=== PATIENT | female | born 1945 | race Hispanic/Latino ===

== ENCOUNTER 2017-06-22 18:25 | Emergency (ER) | payer OTHER ==
[~2017-06-22 18:25] MED LIST: NAPR-1023 PO
[2017-06-22 18:56] LABS: BASOPHILS % (AUTO) 0.9 % (0.0-5.0); EOSINOPHILS % (AUTO) 2.2 % (0.0-8.0); HEMATOCRIT 39.2 % (36-48); LYMPHOCYTES % (AUTO) 21.7 % (21.0-51.0); MEAN CORPUSCULAR HEMOGLOBIN 28.5 pg (27.0-33.0); MEAN CORPUSCULAR HGB CONC 33.3 g/dL (32.0-36.0); MEAN CORPUSCULAR VOLUME 85.6 fL (79-99); MONOCYTES % (AUTO) 7.7 % (3.0-13.0); NEUTROPHILS % (AUTO) 67.5 % (40.0-77.0); NUCLEATED RED BLOOD CELLS 0.1 % (0.0-0.19); PLATELET COUNT (AUTO) 272 K/uL (130-400); RED BLOOD CELL COUNT(AUTO) 4.58 MIL/uL (4.00-5.50); RED CELL DISTRIBUTION WIDTH 14.5 % (11.0-15.5); WHITE BLOOD COUNT (AUTO) 7.2 K/uL (4.8-10.8)
[2017-06-22 19:06] LABS: CREATININE 0.9 mg/dL (0.5-1.5); POTASSIUM 3.5 mmol/L (3.5-5.1)
[2017-06-22 19:10] LABS: ALBUMIN 3.6 g/dL (3.5-5.0); BILIRUBIN,TOTAL 0.2 mg/dL (0.2-1.0); TOTAL PROTEIN, SERUM 7.3 g/dL (6.0-8.3)
[2017-06-22] MEDS ORDERED: IOPAMIDOL-370 75 ML VIAL IV ONE (19:10)
[2017-06-22] MEDS ORDERED: IOPAMIDOL-370 100 ML VIAL IV ONE (20:01)
[2017-06-22] MEDS ORDERED: MORPHINE SULFATE 4 MG/1ML SYG ONE (21:01)
[2017-06-22] MEDS ORDERED: KETOROLAC TROMETHAMINE 15MG/ML ONE (21:07)
[2017-06-22 21:56] LABS: APPEARANCE,URINE Clear (CLEAR); BILIRUBIN,URINE Negative (NEGATIVE); COLOR,URINE Yellow (YELLOW); GLUCOSE, URINE (UA) Negative (NEGATIVE); KETONES,URINE Negative (NEGATIVE); LEUKOCYTE ESTERASE ,URINE Negative (NEGATIVE); NITRATE,URINE Positive (NEGATIVE); OCCULT BLOOD,URINE Small (NEGATIVE); PH,URINE 6.5 (5.0-8.0); PROTEIN,URINE Negative (NEGATIVE); UROBILINOGEN,URINE 0.2 mg/dL (0.2-1.0)
[2017-06-22 22:05] LABS: BACTERIA,URINE Moderate /HPF (None Seen); RBC,URINE 0-1 /HPF (0-1)
== END 2017-06-22 22:18 | disposition home or self-care (01) ==
LOC: EDH 18:25
DX: S00.81XA Abrasion of other part of head, initial encounter (principal); S30.811A Abrasion of abdominal wall, initial encounter; S20.412A Abrasion of left back wall of thorax, initial encounter; S10.81XA Abrasion of other specified part of neck, initial encounter; M19.90 Unspecified osteoarthritis, unspecified site; E78.5 Hyperlipidemia, unspecified; M81.0 Age-related osteoporosis without current pathological fracture; M25.562 Pain in left knee; M79.645 Pain in left finger(s); Y04.0XXA Assault by unarmed brawl or fight, initial encounter; Y93.89 Activity, other specified; Y92.89 Other specified places as the place of occurrence of the external cause; Y99.8 Other external cause status
CPT/HCPCS: 36415; 70450; 70486; 71260; 72125; 73130; 73562; 74177; 80053; 81001; 85025; 99285; J1885; J2270; Q9967

== ENCOUNTER 2018-01-14 20:23 | Observation (INO) | payer OTHER ==
[~2018-01-14] VITALS: Ht 162.6 cm; Wt 102.5 kg
[2018-01-14] MEDS ORDERED: METHYLPREDNISOLONE SOD SUCC 125MG/2ML VIAL ONE (20:25)
[2018-01-14] MEDS ORDERED: ACETAMINOPHEN 325 MG TAB ONE (20:30)
[2018-01-14] MEDS ORDERED: IPRATROPIUM/ALBUTEROL SULFATE 3 ML SOLUTION IH ONE (20:39)
[2018-01-14 20:49] LABS: BASOPHILS % (AUTO) 0.4 % (0.0-5.0); EOSINOPHILS % (AUTO) 1.6 % (0.0-8.0); LYMPHOCYTES % (AUTO) 13.7 % (21.0-51.0); MEAN CORPUSCULAR HEMOGLOBIN 27.7 pg (27.0-33.0); MEAN CORPUSCULAR HGB CONC 32.1 g/dL (32.0-36.0); MEAN CORPUSCULAR VOLUME 86.4 fL (79-99); MONOCYTES % (AUTO) 2.2 % (3.0-13.0); NEUTROPHILS % (AUTO) 82.1 % (40.0-77.0); PLATELET COUNT (AUTO) 107 K/uL (130-400); RED BLOOD CELL COUNT(AUTO) 4.28 MIL/uL (4.00-5.50); RED CELL DISTRIBUTION WIDTH 14.7 % (11.0-15.5); WHITE BLOOD COUNT (AUTO) 3.8 K/uL (4.8-10.8)
[2018-01-14 21:13] LABS: INR 1.03 (0.85-1.15); PARTIAL THROMBOPLASTIN TIME 29.9 SEC (26.3-35.5); PROTHROMBIN TIME 10.8 SEC (9.6-11.6)
[2018-01-14 21:14] LABS: ALBUMIN 2.7 g/dL (3.5-5.0); BILIRUBIN,TOTAL 0.9 mg/dL (0.2-1.0); CREATININE 0.8 mg/dL (0.5-1.5); TOTAL PROTEIN, SERUM 6.6 g/dL (6.0-8.3)
[2018-01-14] MEDS ORDERED: SODIUM CHLORIDE 0.9% 1000ML 1,000 ML IV ONE (21:56)
[2018-01-14] MEDS ORDERED: AZITHROMYCIN 500MG+NS 250ML 250 ML IV ONE (22:01)
[2018-01-14 22:57] LABS: APPEARANCE,URINE Clear (CLEAR); BILIRUBIN,URINE Negative (NEGATIVE); COLOR,URINE Yellow (YELLOW); GLUCOSE, URINE (UA) Negative (NEGATIVE); KETONES,URINE Negative (NEGATIVE); LEUKOCYTE ESTERASE ,URINE Small (NEGATIVE); NITRATE,URINE Positive (NEGATIVE); OCCULT BLOOD,URINE Moderate (NEGATIVE); PROTEIN,URINE POS 2+ (NEGATIVE)
[2018-01-14 23:09] LABS: BACTERIA,URINE Moderate /HPF (None Seen)
[2018-01-14] MEDS ORDERED: IPRATROPIUM/ALBUTEROL SULFATE 3 ML SOLUTION IH PRN (23:45)
[2018-01-14] MEDS ORDERED: AZITHROMYCIN 500 MG in SODIUM CHLORIDE 0.9% 250 ML IV SCH (23:45)
[2018-01-14] MEDS ORDERED: SODIUM CHLORIDE 0.9% 10 ML VIAL IVP PRN (23:45)
[2018-01-14] MEDS ORDERED: ACETAMINOPHEN 325 MG TAB PO PRN ×2 (23:45)
[2018-01-15] MEDS: CEFTRIAXONE SODIUM 1 GM IVP SCH
[2018-01-15] MEDS ORDERED: IPRATROPIUM/ALBUTEROL SULFATE 3 ML SOLUTION IH ONE (06:40)
[2018-01-15] MEDS: IPRATROPIUM/ALBUTEROL SULFATE 3 ML SOLUTION IH SCH ×4 (06:42→18:39)
[2018-01-15 08:00] VITALS: BP 143/77
[2018-01-15 11:00] VITALS: BP 121/52
[2018-01-15] MEDS: METHYLPREDNISOLONE SOD SUCC 40MG/ML 1ML IVP SCH ×2 (12:12)
[2018-01-15 16:00] VITALS: BP 141/63
[2018-01-15 19:30] VITALS: BP 113/54
[2018-01-15] MEDS ORDERED: LIDOCAINE HCL-MPF 1% 2ML VIAL IVP PRN (19:30)
[2018-01-15] MEDS ORDERED: POTASSIUM CHLORIDE 10% ELIXIR 20 MEQ/15 ML UDCUP PO PRN (19:30)
[2018-01-15] MEDS ORDERED: POTASSIUM CHLORIDE 20MEQ/100ML 100 ML IV PRN (19:30)
[2018-01-15] MEDS: AZITHROMYCIN 500MG+NS 250ML 250 ML IV SCH (21:49)
[2018-01-15] MEDS: POTASSIUM CHLORIDE 20 MEQ ERTAB PO PRN (23:41)
[2018-01-16] VITALS (7 sets, daily range): BP systolic 130–179; BP diastolic 61–76
[2018-01-16] MEDS: CEFTRIAXONE SODIUM 1 GM IVP SCH ×2 (01:09→23:48)
[2018-01-16] MEDS: METHYLPREDNISOLONE SOD SUCC 40MG/ML 1ML IVP SCH ×3 (01:09→23:48)
[2018-01-16] MEDS: POTASSIUM CHLORIDE 20 MEQ ERTAB PO PRN (03:23)
[2018-01-16 04:36] LABS: HEMATOCRIT 33.7 % (36-48); MEAN CORPUSCULAR HEMOGLOBIN 28.2 pg (27.0-33.0); MEAN CORPUSCULAR HGB CONC 32.7 g/dL (32.0-36.0); MEAN CORPUSCULAR VOLUME 86.4 fL (79-99); NUCLEATED RED BLOOD CELLS 0.1 % (0.0-0.19); PLATELET COUNT (AUTO) 141 K/uL (130-400); WHITE BLOOD COUNT (AUTO) 7.7 K/uL (4.8-10.8)
[2018-01-16 04:39] LABS: CREATININE 0.7 mg/dL (0.5-1.5); POTASSIUM 3.7 mmol/L (3.5-5.1)
[2018-01-16] MEDS: IPRATROPIUM/ALBUTEROL SULFATE 3 ML SOLUTION IH SCH ×4 (06:00→18:00)
[2018-01-16] MEDS: SODIUM CHLORIDE 0.9% 1000ML 1,000 ML IV SCH ×3 (06:33→22:05)
[2018-01-16] MEDS ORDERED: ALBU18HF7 IH (10:09)
[2018-01-16] MEDS ORDERED: SIMV40TA59 PO (10:09)
[2018-01-16] MEDS ORDERED: ASPI-555 PO (11:12)
[2018-01-16] MEDS ORDERED: NAPROXEN 500 MG TABLET PO PRN (11:15)
[2018-01-16] MEDS ORDERED: ALBUTEROL SULFATE 0.083% 2.5 MG/3 ML INH IH PRN (11:15)
[2018-01-16] MEDS ORDERED: SIMVASTATIN 20 MG TABLET PO SCH (21:00)
[2018-01-16] MEDS: AZITHROMYCIN 500MG+NS 250ML 250 ML IV SCH (22:06)
[2018-01-17 03:55] VITALS: BP 185/77
[2018-01-17 04:57] LABS: HEMATOCRIT 33.4 % (36-48); MEAN CORPUSCULAR HGB CONC 33.9 g/dL (32.0-36.0); MEAN CORPUSCULAR VOLUME 85.4 fL (79-99); PLATELET COUNT (AUTO) 190 K/uL (130-400); RED BLOOD CELL COUNT(AUTO) 3.91 MIL/uL (4.00-5.50); WHITE BLOOD COUNT (AUTO) 7.3 K/uL (4.8-10.8)
[2018-01-17 05:01] LABS: CREATININE 0.7 mg/dL (0.5-1.5); POTASSIUM 3.6 mmol/L (3.5-5.1)
[2018-01-17] MEDS: POTASSIUM CHLORIDE 20 MEQ ERTAB PO PRN (05:12)
[2018-01-17] MEDS: IPRATROPIUM/ALBUTEROL SULFATE 3 ML SOLUTION IH SCH ×2 (06:09→10:09)
[2018-01-17 08:22] VITALS: BP 187/77
[2018-01-17] MEDS ORDERED: LISINOPRIL 20 MG TABLET PO SCH (09:00)
[2018-01-17] MEDS ORDERED: ASPIRIN 81MG TAB.CHEW PO SCH (09:00)
== END 2018-01-17 11:12 | disposition home or self-care (01) ==
LOC: EDH 20:23 → EDHIP 22:48 → 4CH 01-15 07:46
PROVIDERS: ADMIT Internal Medicine; ATTEND Internal Medicine
DX: J44.0 Chronic obstructive pulmonary disease with (acute) lower respiratory infection (principal); J44.1 Chronic obstructive pulmonary disease with (acute) exacerbation; I10 Essential (primary) hypertension; R50.9 Fever, unspecified; E87.6 Hypokalemia; E78.5 Hyperlipidemia, unspecified; J18.1 Lobar pneumonia, unspecified organism; Z79.01 Long term (current) use of anticoagulants
CPT/HCPCS: 36415 ×3; 71045; 80048 ×2; 80053; 81001; 83605 ×2; 83880; 85025; 85027 ×2; 85610; 85730; 87040 ×2; 87088; 87804 ×2; 93005; 94640 ×9; 94660; 94664; 96365; 96366; 96375 ×2; 96376; 99291; A4218; G0378 ×60; J0456 ×4; J0696 ×2; J2920 ×3; J2930; J7030 ×2

== ENCOUNTER 2020-07-10 23:16 | Emergency (ER) | payer OTHER ==
[~2020-07-10 23:16] MED LIST changes: +ALBU18HF7 IH; +ASPI-556 PO; +SIMV40TA59 PO
[2020-07-11 01:40] LABS: APPEARANCE,URINE Cloudy (CLEAR); BILIRUBIN,URINE Negative (NEGATIVE); COLOR,URINE Yellow (YELLOW); GLUCOSE, URINE (UA) Negative (NEGATIVE); KETONES,URINE Negative (NEGATIVE); LEUKOCYTE ESTERASE ,URINE Small (NEGATIVE); NITRATE,URINE Positive (NEGATIVE); OCCULT BLOOD,URINE Trace (NEGATIVE); PROTEIN,URINE Negative (NEGATIVE); UROBILINOGEN,URINE 0.2 mg/dL (0.2-1.0)
[2020-07-11 01:52] LABS: BACTERIA,URINE Moderate /HPF (None Seen); RBC,URINE 0-1 /HPF (0-1); SQUAMOUS EPITHELIAL CELL,UR Few /HPF (0-2); WBC,URINE 0-1 /HPF (0-1)
[2020-07-11] MEDS ORDERED: HYDROCODONE/ACETAMINOPHEN 5/325 MG TAB ONE (02:27)
[2020-07-11 02:41] LABS: BASOPHILS % (AUTO) 0.7 % (0.0-5.0); EOSINOPHILS % (AUTO) 3.2 % (0.0-8.0); HEMATOCRIT 38.2 % (36-48); LYMPHOCYTES % (AUTO) 30.4 % (21.0-51.0); MEAN CORPUSCULAR HEMOGLOBIN 28.6 pg (27.0-33.0); MEAN CORPUSCULAR HGB CONC 32.5 g/dL (32.0-36.0); MONOCYTES % (AUTO) 9.1 % (3.0-13.0); PLATELET COUNT (AUTO) 273 K/uL (130-400); RED BLOOD CELL COUNT(AUTO) 4.34 MIL/uL (4.00-5.50); WHITE BLOOD COUNT (AUTO) 6.8 K/uL (4.8-10.8)
[2020-07-11 02:55] LABS: ALBUMIN 3.3 g/dL (3.5-5.0); BILIRUBIN,TOTAL 0.4 mg/dL (0.2-1.0); CREATININE 0.6 mg/dL (0.5-1.5); POTASSIUM 3.7 mmol/L (3.5-5.1); TOTAL PROTEIN, SERUM 6.8 g/dL (6.0-8.3)
[2020-07-11 03:00] LABS: B-TYPE NATRIURETIC PEPTIDE 42 pg/mL (0-100)
[2020-07-11] MEDS ORDERED: FUROSEMIDE 20 MG TABLET ONE (03:37)
[2020-07-11] MEDS ORDERED: CEPHALEXIN 500 MG CAPSULE ONE (03:37)
== END 2020-07-11 04:24 | disposition home or self-care (01) ==
LOC: EDH 23:16
DX: S43.421A Sprain of right rotator cuff capsule, initial encounter (principal); N39.0 Urinary tract infection, site not specified; M25.551 Pain in right hip; R29.6 Repeated falls; I10 Essential (primary) hypertension; M81.0 Age-related osteoporosis without current pathological fracture; E78.5 Hyperlipidemia, unspecified; M19.90 Unspecified osteoarthritis, unspecified site; W18.39XA Other fall on same level, initial encounter; Y93.01 Activity, walking, marching and hiking; Y92.89 Other specified places as the place of occurrence of the external cause; Y99.8 Other external cause status
CPT/HCPCS: 36415; 72170; 73030; 73562; 80053; 81001; 83880; 85025; 87077; 87088; 87186

== ENCOUNTER → 2020-08-02 | Outpatient (CLI) | payer OTHER | END | disposition home or self-care (01) | LOC: RAH 10:25 | PROVIDERS: ATTEND Internal Medicine | DX: I08.0 Rheumatic disorders of both mitral and aortic valves (principal); R55 Syncope and collapse; R60.0 Localized edema; E66.9 Obesity, unspecified; E78.5 Hyperlipidemia, unspecified | CPT/HCPCS: 93306; 93356 ==

== ENCOUNTER → 2020-08-08 | Outpatient (CLI) | payer OTHER | END | disposition home or self-care (01) | LOC: RAH 09:50 | PROVIDERS: ATTEND Internal Medicine | DX: I87.2 Venous insufficiency (chronic) (peripheral) (principal); I87.9 Disorder of vein, unspecified | CPT/HCPCS: 93970 ==

== ENCOUNTER → 2020-09-14 | Outpatient (CLI) | payer OTHER | END | disposition home or self-care (01) | LOC: RAH 10:40 | DX: M77.52 Other enthesopathy of left foot and ankle (principal); M77.51 Other enthesopathy of right foot and ankle; M79.89 Other specified soft tissue disorders | CPT/HCPCS: 73560 ==

== ENCOUNTER → 2022-04-10 | Outpatient (CLI) | payer OTHER ==
[2022-04-10 13:00] LABS: CREATININE 0.6 mg/dL (0.5-1.5); POTASSIUM 4.2 mmol/L (3.5-5.1)
== END | disposition home or self-care (01) ==
LOC: LAB 11:36
PROVIDERS: ATTEND Student in an Organized Health Care Education/Training Program
DX: I10 Essential (primary) hypertension (principal); R06.09 Other forms of dyspnea
CPT/HCPCS: 36415; 80048

== ENCOUNTER → 2022-04-12 | Outpatient (CLI) | payer OTHER ==
[~2022-04-12] MED LIST changes: +IOHEXOL 350 MG/ML 100ML INFUS..BTL IV ONE
== END | disposition home or self-care (01) ==
LOC: RAH 09:20
PROVIDERS: ATTEND Student in an Organized Health Care Education/Training Program
DX: K44.9 Diaphragmatic hernia without obstruction or gangrene (principal); R06.02 Shortness of breath; M47.815 Spondylosis without myelopathy or radiculopathy, thoracolumbar region
CPT/HCPCS: 75574; Q9967

== ENCOUNTER → 2022-04-16 | Outpatient (CLI) | payer OTHER ==
[~2022-04-16] MED LIST changes: -IOHEXOL 350 MG/ML 100ML INFUS..BTL IV ONE
== END | disposition home or self-care (01) ==
LOC: SHCH 10:03
PROVIDERS: ATTEND Student in an Organized Health Care Education/Training Program
DX: R06.02 Shortness of breath (principal)
CPT/HCPCS: 93306

== ENCOUNTER 2024-12-21 08:56 | Emergency (ER) | payer OTHER ==
[~2024-12-21] VITALS: Ht 152.4 cm; Wt 111.6 kg
[~2024-12-21 08:56] MED LIST changes: -NAPR-1023 PO; +NAPR-1194 PO
[2024-12-21 09:30] LABS: IMMATURE GRANULOCYTE ABSOLUTE 0.01 K/uL (0-1); NUCLEATED RED BLOOD CELLS 0.0 % (0.0-0.19); PLATELET COUNT (AUTO) 264 K/uL (130-400); RED BLOOD CELL COUNT(AUTO) 4.55 MIL/uL (4.00-5.50); RED CELL DISTRIBUTION WIDTH 13.9 % (11.0-15.5); WHITE BLOOD COUNT (AUTO) 4.5 K/uL (4.8-10.8)
[2024-12-21 09:48] LABS: ASPARTATE AMINOTRANSFERASE 15.0 U/L (10-37); CREATININE 0.5 mg/dL (0.5-1.0); GLOMERULAR FILTR. RATE CALC 95.0 mL/min (>90); GLUCOSE,RANDOM 97.0 mg/dL (70-105); SODIUM SERUM 139.0 mmol/L (136-145); TOTAL PROTEIN, SERUM 7.3 g/dL (6.0-8.3); UREA NITROGEN, BLOOD 18.0 mg/dL (7-18)
--- NOTE | 2024-12-21 10:33 | EKG ---
[facility] Test Date: 2024-12-21 Test Time: 09:03:21 Pat Name: REECE MURPHY Department: [facility] Room: Gender: F Final Application Reviewer: [id number] : [id number] Requested By: AMILCAR CHRISTIAN Order Number: [id number] Reading MD: Vicki Lizarraga Measurements Intervals [place] Rate: 57 P: -16 NH: 214 QRS: -8 QRSD: 109 T: 44 QT: 429 QTc: 417 Interpretive Statements Sinus rhythm Borderline prolonged NH interval Compared to ECG 01/14/2018 20:26:39 Sinus tachycardia no longer present ST (T wave) deviation no longer present Electronically Signed On 12-23-2024 12:39:04 MEDICAL ESTHETICIAN by Vicki Lizarraga Please click the below link to view image of tracing.
--- NOTE | 2024-12-21 10:34 | HMCIMG ---
EXAM: CR Chest, 1 View. CLINICAL HISTORY: cp COMPARISON: None provided. FINDINGS: LUNGS: There is no mass, infiltrate, or acute pulmonary abnormality. PLEURAL SPACES: No pleural effusion or pneumothorax. MEDIASTINUM: The cardiomediastinal silhouette is within normal limits. BONES: No aggressive appearing osseous lesion seen. MISCELLANEOUS: Suspected hiatal hernia. Elevated right hemidiaphragm. IMPRESSION: 1. No acute cardiopulmonary findings. 2. Suspected hiatal hernia. 3. Elevated right hemidiaphragm. /[place]
--- NOTE | 2024-12-21 11:10 | HMCIMG ---
EXAM: CT Head Without IV contrast. CLINICAL HISTORY: Dizziness. TECHNIQUE: Axial computed tomography images of the head/brain without intravenous contrast. COMPARISON: None provided. FINDINGS: BRAIN: No evidence of acute hemorrhage. No mass lesion. No CT evidence for acute territorial infarct. No midline shift or extra-axial collections. Age-related cerebral atrophy. VENTRICLES: No hydrocephalus. ORBITS: The orbits are unremarkable. SINUSES AND MASTOIDS: The paranasal sinuses and mastoid air cells are clear. BONES: No fracture. Note made of hyperostosis frontalis interna. SOFT TISSUES: Unremarkable. IMPRESSION: No acute intracranial abnormality. Age-related cerebral atrophy. /[place]
--- NOTE | 2024-12-21 12:02 | ERN ---
ED Note History of Present Illness Stated Complaint: CP Chief Complaint: Chest Pain Time Seen by MD: 09:00 Dictation: 79-year-old female presenting to the emergency department for elevated blood pressure dizziness and left-sided neck pain which radiates your arm. Patient d enies any chest pain or shortness of breath at this time and they reports similar episodes in the past. Allergies: Coded Allergies: No Known Drug Allergies (Unverified Allergy, Unknown, 06/16/16) Home Meds Reported Medications Aspirin (Aspir 81) 81 Mg Tablet.dr, 81 MG PO AM, TAB 01/16/18 Albuterol Sulfate (Ventolin Hfa) 18 Gm Hfa.aer.ad, 18 GM IH TIDP PRN for SHORTNESS OF BREATH, INHALER 01/16/18 Simvastatin (ZOCOR) 40 Mg Tablet, 40 MG PO HS, TAB 01/16/18 Naproxen (Naproxen) 500 Mg Tablet, 500 MG PO BID PRN for PAIN LEVEL 1 TO 5, TAB 06/17/16 Past Medical History Past Medical History: Hypertension Surgical History: None Review of System Dictation Constitutional: Negative for fever,chills, and weight loss Eyes: Negative for injury, pain,redness, and discharge ENT: Negative for injury,pain or swelling Cardiovascular: Per HPI Respiratory: Negative for shortness of breath, cough, and wheezing, Abdomen/GI: Negative for abdominal pain, nausea, vomiting, diarrhea, and constipation Back: Negative for injury and pain : Negative for injury, bleeding and discharge MS/Extremity: Negative for injury and deformity Skin: Negative for rash, and discoloration Neuro: Per Hpi Initial Vital Sign VS Vital Signs Date Time Temp Pulse Resp B/P (MAP) Pulse Ox O2 Delivery O2 Flow Rate FiO2 12/21/24 08:59 97.9 58 18 207/75 100 Room Air 0 12/21/24 09:35 21 Physical Exam Dictation General: awake, alert, NAD Head/Face: Normocephalic, atraumatic Eyes: PERRL, EOMI, vision at baseline ENT: oral cavity clear, TMs clear, no signs of infection Neck: Trachea midline, supple, no nuchal rigidity Cardiovascular: RRR, normal S1/S2, No MRGs, no JVD Respiratory: CTAB, no respiratory distress, No rales or wheezes Abdomen: Soft, non-tender, non-distended, normal bowel sounds, no guarding or rebound. Skin: Warm, dry, normal turgor, no rash MS/Extremity: Pulses equal, no cyanosis, neurovascular intact, FROM Neuro: COAx4, GCS 15, strength 5/5, CN 2-12 intact, normal cerebellar exam, normal gait, NIH stroke scale 0 Psych: Normal behavior, mood, and affect normal Results (Laboratory/Radiology) Laboratory/Radiology Laboratory Tests Test 12/21/24 09:21 White Blood Count 4.5 K/uL (4.8-10.8) L Red Blood Count 4.55 MIL/uL (4.00-5.50) Hemoglobin 12.9 g/dL (12.0-16.0) Hematocrit 40.6 % (36-48) Mean Corpuscular Volume 89.2 fL (79-99) Mean Corpuscular Hemoglobin 28.4 pg (27.0-33.0) Mean Corpuscular Hemoglobin Concent 31.8 g/dL (32.0-36.0) L Red Cell Distribution Width 13.9 % (11.0-15.5) Platelet Count 264 K/uL (130-400) Mean Platelet Volume 10.7 fL (7.5-10.5) H Immature Granulocyte % (Auto) 0.2 % (0-1) Neutrophils (%) (Auto) 47.9 % (40.0-77.0) Lymphocytes (%) (Auto) 38.0 % (21.0-51.0) Monocytes (%) (Auto) 10.3 % (3.0-13.0) Eosinophils (%) (Auto) 2.9 % (0.0-8.0) Basophils (%) (Auto) 0.7 % (0.0-5.0) Neutrophils # (Auto) 2.1 K/uL (1.8-7.7) Lymphocytes # (Auto) 1.7 K/uL (1.0-4.8) Monocytes # (Auto) 0.5 K/uL (0.1-1.0) Eosinophils # (Auto) 0.13 K/uL (0.00-0.70) Basophils # (Auto) 0.03 K/uL (0.00-0.20) Absolute Immature Granulocyte (auto 0.01 K/uL (0-1) Nucleated Red Blood Cells 0.0 % (0.0-0.19) Sodium Level 139 mmol/L (136-145) Potassium Level 4.4 mmol/L (3.5-5.1) Chloride Level 105 mmol/L (101-111) Carbon Dioxide Level 29 mmol/L (21-32) Blood Urea Nitrogen 18 mg/dL (7-18) Creatinine 0.5 mg/dL (0.5-1.0) Glomerular Filtration Rate Calc 95 mL/min (>90) Random Glucose 97 mg/dL (70-105) Total Calcium 8.8 mg/dL (8.5-10.1) Total Bilirubin 0.5 mg/dL (0.2-1.0) Direct Bilirubin 0.1 mg/dL (0.0-0.3) Aspartate Amino Transf (AST/SGOT) 15 U/L (10-37) Alanine Aminotransferase (ALT/SGPT) 20 U/L (12-78) Alkaline Phosphatase 81 U/L (50-136) Troponin I High Sensitivity 14 ng/L (4-50) B-Type Natriuretic Peptide 82 pg/mL (0-100) Total Protein 7.3 g/dL (6.0-8.3) Albumin 3.4 g/dL (3.5-5.0) L Labs Reviewed?: Yes EKG Comment: Heart rate 57 normal sinus rhythm normal intervals no STEMI ED Course ED Course Orders Procedure Category Date Status Time B-Type Natriuretic LAB 12/21/24 Complete Peptide 09:01 12 Lead Ekg Tracing- EKG 12/21/24 Complete Technical 09:01 Basic Metabolic Panel LAB 12/21/24 Complete 09:01 Cbc With Differential LAB 12/21/24 Complete 09:01 Hepatic Function Panel LAB 12/21/24 Complete 09:01 Troponin I High LAB 12/21/24 Complete Sensitivity 09:01 Chest 1vw RAD 12/21/24 Resulted 09:01 Ct Head/Brain W/O CT 12/21/24 Resulted Contrast 09:16 Hydralazine 20mg Inj PHA 12/21/24 Complete (Apresoline 20mg In 09:16 Diazepam 5 Mg/Ml 2 Ml PHA 12/21/24 Complete Syg (Valium 5 Mg/M 09:16 Current Medications Medications (Trade) Dose Ordered Sig/Tasneem Route PRN Reason Start Time Stop Time Status Last Admin Dose Admin Diazepam (VALium 5 MG/ML 2 ML SYG) 5 mg ONCE STAT IV 12/21/24 09:16 12/21/24 09:18 DC 12/21/24 09:32 Hydralazine HCl (APRESOLine 20MG INJ) 10 mg ONCE STAT IV 12/21/24 09:16 12/21/24 09:18 DC 12/21/24 09:32 Vital Signs Date Time Temp Pulse Resp B/P (MAP) Pulse Ox O2 Delivery O2 Flow Rate FiO2 12/21/24 10:39 97.9 57 18 167/75 100 Room Air* 0 21 12/21/24 09:35 58 19 207/75 98 Room Air* 0 21 12/21/24 09:32 54 207/75 12/21/24 08:59 97.9 58 18 207/75 100 Room Air 0 Medical Decision Making MDM MDM: Differential diagnosis: Rationale: Tests considered and ordered secondary to shared decision making include: Previous outside records reviewed: Old ER visits. Risk of complication and/or morbidity or mortality of patient management: None Medications-Per medication reconciliation Need for hospitalization: Patient does not meet criteria for hospitalization. Need for emergency major/minor surgery: No There are no social concerns with this patient. Prescription drug management Prescriptions will include symptomatic care Patient's prior external medical records from other ER visits were reviewed by me as indicated. Prior testing and results from previous visits were reviewed. Prior tests were taken into account with medical decision making and resource utilization, independent historian/historians were used to obtain complete medical history. I independently interpreted the test that were performed, results were reviewed by me and considered findings on radiology if ordered. Medical management and examination interpretation discussions were had by me with other qualified healthcare professionals as indicated for the patient's care. 79-year-old female with hypertensive episode and dizziness, stable exam blood pressure has normalized neuro exam again is at baseline with no signs of TIA or CVA, no chest pain negative cardiac workup stable for discharge. Heart score 3 DX & DISP Disposition: Discharge Departure Impression: Primary Impression: Episode of hypertension Condition: Stable Referrals: GABRIELA BRANCH MD (PCP) AMILCAR CHRISTIAN MD Dec 21, 2024 12:02
[2024-12-21 12:07] VITALS: BP 153/62; PULSE 76; RESP 18; TEMP 97.9; O2SAT 99
--- NOTE | 2024-12-21 12:15 | NUR ---
PT STABLE NO DISTRESS, VITALS WNL NO C/O PAIN NOW, PT AND DAUGHTER GIVEN INSTRUCTION FOR HOME. PT WILL CALL FOR F/U WITH PCP IN 2-3 DAYS. IV REMOVED CATHETER INTACT. PT DRESSED WITH ASSISTANCE, PT TAKEN OUT IN W/C DRIVEN HOME BY FAMILY.
== END 2024-12-21 12:19 | disposition home or self-care (01) ==
LOC: EDH 08:56
DX: I10 Essential (primary) hypertension (principal); R42 Dizziness and giddiness; M54.2 Cervicalgia; Z79.899 Other long term (current) drug therapy
CPT/HCPCS: 99285; 96374; 70450; 71045; 96375; 80076; 84484; 80048; 83880; 85025; 36415; 93005; J3360; J0360